=== PATIENT | male | born 1950 | race Caucasian/White ===

== ENCOUNTER 2017-08-05 05:22 | Emergency (ER) | payer MEDICARE, BC ==
[2017-08-05] MEDS ORDERED: Acetaminophen/oxyCODONE 325-5 MG Tab PO ONE (06:09)
--- NOTE | 2017-08-05 06:21 | EDM.PDOC ---
ED HPI GENERAL MEDICAL PROBLEM - General Chief Complaint: Upper Extremity Injury/Pain Stated Complaint: RT THUMB SMASH Time Seen by Provider: 08/05/17 06:10 Source of Information: Reports: Patient History Limitations: Reports: No Limitations - History of Present Illness INITIAL COMMENTS - FREE TEXT/NARRATIVE: Smashed his R thumb yesterday afternoon. Pain, throbbing kept him awake. Here now for tx. 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: Other (see below) (none) R thumb Pain Score (Numeric/FACES): 5 - Related Data Allergies Allergy/AdvReac Type Severity Reaction Status Date / Time No Known Allergies Allergy Verified 08/05/17 05:43 Home Meds: Home Meds Aspirin [Ecotrin] 325 mg PO DAILY #30 tablet.dr 08/03/14 [Rx] Lisinopril [Prinivil] 40 mg PO DAILY #90 tablet 08/03/14 [Rx] Omeprazole 20 mg PO BEDTIME #30 cap.sr 08/03/14 [Rx] Carbidopa/Levodopa [Carbidopa-Levodopa 25-100 Tab] 2 tab TID 08/05/17 [History] ClonazePAM [KlonoPIN] 0.5 mg PO BID 08/05/17 [History] Furosemide [Furosemide] 20 mg DAILY 08/05/17 [History] LORazepam [Ativan] 0.5 mg PO TID PRN 08/05/17 [History] Naproxen 250 mg PO DAILY 08/05/17 [History] Pyridostigmine [Mestinon] 60 mg BID 08/05/17 [History] predniSONE [Prednisone] 10 mg DAILY 08/05/17 [History] Past Medical History HEENT History: Reports: Other (See Below) Other HEENT History: myasthenia gravis Cardiovascular History: Reports: Hypertension Gastrointestinal History: Reports: GERD Neurological History: Reports: Parkinson's Psychiatric History: Reports: Anxiety Endocrine/Metabolic History: Reports: Obesity/BMI 30+ Oncologic (Cancer) History: Reports: Basal Cell Carcinoma - Infectious Disease History Infectious Disease History: Reports: Measles - Past Surgical History HEENT Surgical History: Reports: None Social & Family History - Family History Family Medical History: Noncontributory - Tobacco Use Smoking Status *Q: Current Every Day Smoker Years of Tobacco use: 50 Used Tobacco, but Quit: Yes Month Tobacco Last Used: 40 years ago Second Hand Smoke Exposure: No - Alcohol Use Days Per Week of Alcohol Use: 7 Number of Drinks Per Day: 6 Total Drinks Per Week: 42 - Recreational Drug Use Recreational Drug Use: No - Living Situation & Occupation Living situation: Reports: , with Spouse Occupation: Employed Review of Systems - Review of Systems Review Of Systems: See Below Constitutional: Reports: No Symptoms Musculoskeletal: Reports: Other (Distal R thumb pain) Skin: Reports: No Symptoms Neurological: Reports: No Symptoms ED EXAM, GENERAL - Physical Exam Exam: See Below Exam Limited By: No Limitations General Appearance: Alert, WD/WN, No Apparent Distress Ears: Normal External Exam, Normal Canal, Hearing Grossly Normal, Normal TMs Extremities: Other (subungual hematoma present R thumbnail.) Neurological: Alert, Oriented, CN II-XII Intact, Normal Cognition, No Motor/ Sensory Deficits Psychiatric: Normal Affect, Normal Mood Skin Exam: Warm, Dry, Intact, Normal Color, No Rash ED TRAUMA EXTREMITY PROCEDURES - Additional/Other Procedure(s) Other (Free Text) Procedure(s): Subungual hematoma reduced with electrocautery. Course - Vital Signs Last Recorded V/S: Last Vital Signs Temp 36.5 C 08/05/17 05:27 Pulse 64 08/05/17 05:27 Resp 18 08/05/17 05:27 BP 129/75 08/05/17 05:27 Pulse Ox 99 08/05/17 05:27 - Orders/Labs/Meds Orders: Active Orders 24 hr Category Date Time Status Fingers Thumb Rt F5 [CR] Stat Exams 08/05/17 05:49 Ordered Meds: Medications Discontinued Medications Generic Name Dose Route Start Last Admin Trade Name Freq PRN Reason Stop Dose Admin Oxycodone/Acetaminophen 1 tab 08/05/17 06:09 08/05/17 06:22 Percocet 325-5 Mg PO 08/05/17 06:10 1 tab ONETIME ONE Administration - Radiology Interpretation Free Text/Narrative:: R thumb [id number] Departure - Departure Time of Disposition: 06:40 Disposition: Home, Self-Care 01 Condition: Good Clinical Impression: Subungual hematoma of fingernail Qualifiers: Encounter type: initial encounter Qualified Code(s): S60.10XA - Contusion of unspecified finger with damage to nail, initial encounter - Discharge Information Referrals: Anthony Campuzano MD [Primary Care Provider] - Forms: ED Department Discharge - My Orders Last 24 Hours: My Active Orders 08/05/17 05:49 Fingers Thumb Rt F5 [CR] Stat - Assessment/Plan Last 24 Hours: My Active Orders 08/05/17 05:49 Fingers Thumb Rt F5 [CR] Stat
[2017-08-05 07:04] VITALS: BP 125/75
--- NOTE | 2017-08-05 10:55 | CR ---
INDICATION: Crushed thumb on combine. RIGHT THUMB: Three views of the right thumb were obtained and revealed no evidence of an acute fracture, dislocation, or other acute bone or joint abnormality. Osteoarthritic changes are noted at the first metacarpal-carpal, first metacarpophalangeal, and interphalangeal joint of the thumb. IMPRESSION: 1. No acute fracture or dislocation. 2. Osteoarthritis, mild to moderate in severity. MTDD
== END 2017-08-05 07:02 | disposition home or self-care (01) ==
LOC: FB.ED 05:22
DX: S60.111A Contusion of right thumb with damage to nail, initial encounter (principal); E66.9 Obesity, unspecified; I10 Essential (primary) hypertension; F41.9 Anxiety disorder, unspecified; F17.210 Nicotine dependence, cigarettes, uncomplicated; X58.XXXA Exposure to other specified factors, initial encounter; Z79.82 Long term (current) use of aspirin
CPT/HCPCS: 11740; 73140; 99283; A9270; 10160

== ENCOUNTER 2018-03-17 17:17 | Emergency (ER) | payer MEDICARE, BC ==
[2018-03-17] MEDS ORDERED: Sodium Chloride 0.9% 1,000 ML IV ONE (17:56)
[2018-03-17] MEDS ORDERED: Ondansetron 4 MG/2 ML SDV IVPUSH ONE (17:56)
--- NOTE | 2018-03-17 18:03 | EDM.PDOC ---
ED HPI GENERAL MEDICAL PROBLEM - General Chief Complaint: Abdominal Pain Stated Complaint: JAUNDICE Time Seen by Provider: 03/17/18 17:58 Source of Information: Reports: Patient, Family History Limitations: Reports: No Limitations - History of Present Illness INITIAL COMMENTS - FREE TEXT/NARRATIVE: Developed right sided abdominal pain and nausea last night. Abdominal pain resolved, still slightly nauseous. Family noticed patient was jaundiced today. No prior h/o liver or biliary issues. Has not been taking acetaminophen. No prior abdominal surgeries. Consumes 2-4 beers/day. Location: Reports: Abdomen Severity: Moderate Right Lower Abdomen Pain Score (Numeric/FACES): 2 - Related Data Allergies Allergy/AdvReac Type Severity Reaction Status Date / Time shrimp Allergy Swelling Verified 03/17/18 17:32 Home Meds: Home Meds Aspirin [Ecotrin] 325 mg PO DAILY #30 tablet.dr 08/03/14 [Rx] Lisinopril [Prinivil] 40 mg PO DAILY #90 tablet 08/03/14 [Rx] Omeprazole 20 mg PO BEDTIME #30 cap.sr 08/03/14 [Rx] Carbidopa/Levodopa [Carbidopa-Levodopa 25-100 Tab] 2 tab PO TID 08/05/17 [ History] ClonazePAM [KlonoPIN] 0.5 mg PO BID 08/05/17 [History] Furosemide 20 mg PO DAILY 08/05/17 [History] Naproxen 250 mg PO DAILY 08/05/17 [History] Pyridostigmine [Mestinon] 60 mg PO DAILY 08/05/17 [History] DULoxetine [Cymbalta] 30 mg PO DAILY 03/17/18 [History] Pyridostigmine [Mestinon] 60 mg PO BEDTIME PRN MDD vision 03/17/18 [History] Pyridostigmine [Mestinon] 90 - 120 mg PO 14 03/17/18 [History] predniSONE [Prednisone] 5 mg PO DAILY 03/17/18 [History] Past Medical History HEENT History: Reports: Other (See Below) Other HEENT History: myasthenia gravis Cardiovascular History: Reports: Hypertension Gastrointestinal History: Reports: GERD Neurological History: Reports: Parkinson's Psychiatric History: Reports: Anxiety Endocrine/Metabolic History: Reports: Obesity/BMI 30+ Oncologic (Cancer) History: Reports: Basal Cell Carcinoma - Infectious Disease History Infectious Disease History: Reports: Measles - Past Surgical History HEENT Surgical History: Reports: None GI Surgical History: Reports: None Social & Family History - Family History Family Medical History: Noncontributory - Tobacco Use Smoking Status *Q: Current Some Day Smoker Tobacco Use Within Last Twelve Months: Cigarettes - Caffeine Use Caffeine Use: Reports: Coffee - Alcohol Use Alcohol Use Frequency: Daily (2-4 beers/day) - Living Situation & Occupation Living situation: Reports: , with Spouse Occupation: Employed ED ROS GENERAL - Review of Systems Review Of Systems: See Below Constitutional: Reports: No Symptoms HEENT: Reports: No Symptoms Respiratory: Reports: No Symptoms Cardiovascular: Reports: No Symptoms Endocrine: Reports: No Symptoms GI/Abdominal: Reports: Abdominal Pain, Nausea : Reports: No Symptoms Musculoskeletal: Reports: No Symptoms Skin: Reports: Jaundice Neurological: Reports: No Symptoms Psychiatric: Reports: No Symptoms Hematologic/Lymphatic: Reports: No Symptoms Immunologic: Reports: No Symptoms ED EXAM, GI/ABD - Physical Exam Exam: See Below Exam Limited By: No Limitations General Appearance: Alert, WD/WN, No Apparent Distress, Other (icteric sclera bilaterally) Eyes: Bilateral: EOMI Nose: Normal Inspection Throat/Mouth: No Airway Compromise Head: Atraumatic, Normocephalic Neck: Normal Inspection, Supple, Full Range of Motion Respiratory/Chest: No Respiratory Distress, Lungs Clear, Normal Breath Sounds Cardiovascular: No Murmur, Extra Beats GI/Abdominal Exam: Normal Bowel Sounds, Soft, No Distention, Tender (mild RUQ). No: Distended Rectal (Males) Exam: Normal Exam Extremities: Normal Inspection Neurological: Alert, Oriented, Normal Gait, No Motor/Sensory Deficits Psychiatric: Normal Affect, Normal Mood Skin Exam: Warm, Dry, No Rash, Jaundice Course - Vital Signs Last Recorded V/S: Last Vital Signs Temp 36.8 C 03/17/18 17:17 Pulse 69 03/17/18 17:17 Resp 18 03/17/18 17:17 BP 156/83 H 03/17/18 17:17 Pulse Ox 95 03/17/18 17:17 - Orders/Labs/Meds Orders: Active Orders 24 hr Category Date Time Status EKG Documentation Completion [RC] ASDIRECTED Care 03/17/18 17:55 Active Abdomen Pelvis w Cont [CT] Stat Exams 03/17/18 18:48 Ordered UA W/MICROSCOPIC [URIN] Stat Lab 03/17/18 18:35 Received Sodium Chloride 0.9% [Normal Saline] 1,000 ml Med 03/17/18 17:56 Active IV .BOLUS EKG 12 Lead [EK] Stat Ther 03/17/18 17:54 Ordered Medication Orders Sodium Chloride (Normal Saline) 1,000 mls @ 999 mls/hr IV .BOLUS ONE Stop: 03/17/18 18:56 Last Admin: 03/17/18 18:16 Dose: 999 mls/hr Labs: Laboratory Tests 03/17/18 03/17/18 03/17/18 Range/Units 18:00 18:00 18:00 WBC 6.0 (4.5-12.0) X10-3/uL RBC 4.35 (4.30-5.75) x10(6)uL Hgb 15.2 (11.5-15.5) g/dL Hct 44.0 (30.0-51.3) % MCV 101.0 H (80-96) fL MCH 34.9 H (27.7-33.6) pg MCHC 34.5 (32.2-35.4) g/dL RDW 15.8 H (11.5-15.5) % Plt Count 200 (125-369) X10(3)uL MPV 8.9 (7.4-10.4) fL Neut % (Auto) 71.1 (46-82) % Lymph % (Auto) 16.2 (13-37) % [place] % (Auto) 8.6 (4-12) % Eos % (Auto) 1 (1.0-5.0) % Baso % (Auto) 3 H (0-2) % Neut # (Auto) 4.2 (1.6-8.3) # Lymph # (Auto) 1.0 (0.6-5.0) # [place] # (Auto) 0.5 (0.0-1.3) # Eos # (Auto) 0.1 (0.0-0.8) # Baso # (Auto) 0.2 (0.0-0.2) # PT 10.4 (8.7-11.1) INR 1.07 (0.89-1.13) Sodium 137 (135-145) mmol/L Potassium 3.6 (3.5-5.3) mmol/L Chloride 99 L (100-110) mmol/L Carbon Dioxide 32 (21-32) mmol/L BUN 16 (7-18) mg/dL Creatinine 0.8 (0.70-1.30) mg/dL Est Cr Clr Drug Dosing 101.26 mL/min Estimated GFR (MDRD) > 60 (>60) BUN/Creatinine Ratio 20.0 (9-20) Glucose 108 (80-116) mg/dL Calcium 8.8 (8.6-10.2) mg/dL Magnesium (1.8-2.5) mg/dL Total Bilirubin 12.6 H* (0.1-1.3) mg/dL AST 224 H* (5-25) IU/L ALT 149 H (12-36) U/L Alkaline Phosphatase 313 H (56-112) IU/L Total Protein 7.2 (6.0-8.0) g/dL Albumin 3.5 (3.2-4.6) g/dL Globulin 3.7 g/dL Albumin/Globulin Ratio 1.0 Amylase 53 (25-115) U/L 03/17/18 Range/Units 18:00 WBC (4.5-12.0) X10-3/uL RBC (4.30-5.75) x10(6)uL Hgb (11.5-15.5) g/dL Hct (30.0-51.3) % MCV (80-96) fL MCH (27.7-33.6) pg MCHC (32.2-35.4) g/dL RDW (11.5-15.5) % Plt Count (125-369) X10(3)uL MPV (7.4-10.4) fL Neut % (Auto) (46-82) % Lymph % (Auto) (13-37) % [place] % (Auto) (4-12) % Eos % (Auto) (1.0-5.0) % Baso % (Auto) (0-2) % Neut # (Auto) (1.6-8.3) # Lymph # (Auto) (0.6-5.0) # [place] # (Auto) (0.0-1.3) # Eos # (Auto) (0.0-0.8) # Baso # (Auto) (0.0-0.2) # PT (8.7-11.1) INR (0.89-1.13) Sodium (135-145) mmol/L Potassium (3.5-5.3) mmol/L Chloride (100-110) mmol/L Carbon Dioxide (21-32) mmol/L BUN (7-18) mg/dL Creatinine (0.70-1.30) mg/dL Est Cr Clr Drug Dosing mL/min Estimated GFR (MDRD) (>60) BUN/Creatinine Ratio (9-20) Glucose (80-116) mg/dL Calcium (8.6-10.2) mg/dL Magnesium 2.0 (1.8-2.5) mg/dL Total Bilirubin (0.1-1.3) mg/dL AST (5-25) IU/L ALT (12-36) U/L Alkaline Phosphatase (56-112) IU/L Total Protein (6.0-8.0) g/dL Albumin (3.2-4.6) g/dL Globulin g/dL Albumin/Globulin Ratio Amylase (25-115) U/L Meds: Medications Generic Name Dose Route Start Last Admin Trade Name Freq PRN Reason Stop Dose Admin Sodium Chloride 1,000 mls @ 999 mls/hr 03/17/18 17:56 03/17/18 18:16 Normal Saline IV 03/17/18 18:56 999 mls/hr .BOLUS ONE Administration Discontinued Medications Generic Name Dose Route Start Last Admin Trade Name Freq PRN Reason Stop Dose Admin Ondansetron HCl 4 mg 03/17/18 17:56 03/17/18 18:15 Zofran IVPUSH 03/17/18 17:57 4 mg ONETIME ONE Administration - Re-Assessments/Exams Free Text/Narrative Re-Assessment/Exam: 03/17/18 19:00 Patient care transferred to Dr. Hunt @[address] Abd/Pelvis Departure - Departure Time of Disposition: 19:00 (Care transferred to Dr. Hunt) Disposition: Still A Patient 30 Clinical Impression: Jaundice, Abdominal pain - Discharge Information Referrals: Maliha Banks NP [Primary Care Provider] - Forms: ED Department Discharge - My Orders Last 24 Hours: My Active Orders 03/17/18 17:54 EKG 12 Lead [EK] Stat 03/17/18 17:55 EKG Documentation Completion [RC] ASDIRECTED 03/17/18 17:56 Sodium Chloride 0.9% [Normal Saline] 1,000 ml IV .BOLUS 03/17/18 18:35 UA W/MICROSCOPIC [URIN] Stat 03/17/18 18:48 Abdomen Pelvis w Cont [CT] Stat - Assessment/Plan Last 24 Hours: My Active Orders 03/17/18 17:54 EKG 12 Lead [EK] Stat 03/17/18 17:55 EKG Documentation Completion [RC] ASDIRECTED 03/17/18 17:56 Sodium Chloride 0.9% [Normal Saline] 1,000 ml IV .BOLUS 03/17/18 18:35 UA W/MICROSCOPIC [URIN] Stat 03/17/18 18:48 Abdomen Pelvis w Cont [CT] Stat
[2018-03-17] MEDS ORDERED: Iopamidol 755 MG/ML 150 ML Bottle IV ONE (19:23)
[2018-03-17 21:16] VITALS: BP 145/86
--- NOTE | 2018-03-18 11:41 | ER ---
DATE SEEN: 03/17/2018 TIME SEEN: 2015 hours. REASON FOR VISIT: Abdominal pain. HISTORY OF PRESENT ILLNESS: This is a 67-year-old male, who came in with abdominal pain and saw my colleague earlier. Please see his note for the complete history. I was asked to see him after the CT scan, which showed an enlarged gallbladder and common bile duct without obvious evidence of obstruction. FINAL IMPRESSION: Obstructive jaundice. PLAN: I called [facility], and we will transfer the patient to Dr. Matt, the hospitalist, for an MRCP and possibly ERCP. The patient will go by private means. /[id number] KATHY/XIN
--- NOTE | 2018-03-21 07:47 | CT ---
INDICATION: Abdominal pain, upper abdomen - jaundiced. CT ABDOMEN AND CT PELVIS WITH CONTRAST: Spiral 2.5 mm axial sections were obtained through the abdomen and pelvis with 114 mL Isovue 370 at 3 mL/second, with sagittal and coronal reconstructions, 03/17/2018 - no comparisons were available. Total exam DLP = 1,084.30 mGy-cm. Pleural parenchymal change at the right lung base - right lower lobe may be fibrotic in nature, but minimal pneumonia and localized pleuritis cannot be entirely excluded. The possibility of neoplasia would be a consideration also, such as mesothelioma, with the subpleural mass appearance present seen on axial image #14. There is also some calcification in that area. This raises question of a process such as asbestosis, which further raises question of mesothelioma. The heart appears moderately prominent in size and may be slightly enlarged or at the upper limits of normal in size. No pericardial effusion was seen, however. There is mild biliary tree dilatation and dilatation of the common bile duct, which measures up to approximately 11 mm. The gallbladder also appears to be distended, measuring 12.5 cm. No definite calculi are noted within the gallbladder, however. A definite mass is not identified in the area of the head of the pancreas. No definite calculus is seen in the common bile duct distally; however, a degree of obstruction at the distal common bile duct is certainly a consideration with the dilatation present. The pancreas, however, did appear grossly normal. No pancreatic duct dilatation was seen. No focal liver lesions were identified. The adrenal glands appeared normal, as did the kidneys, except for a tiny probable cyst at the medial posterior cortex of the mid pole of the left kidney. The spleen had a normal appearance. Calcifications are noted in the splenic artery and in the aorta, as well as the proximal renal arteries, superior mesenteric artery, iliac and femoral arteries. No definite retroperitoneal mass was seen. What appears to be the appendix, visualized on coronal image #40 through #42, appeared normal. Also visualized on axial images #102 through #105. No evidence of bowel obstruction or free air was seen. Thickening of the urinary bladder wall is noted, which may be on the basis of trabeculation or possibly cystitis and should be correlated clinically. The prostate was not grossly enlarged but did measure 22 x 45 x 40 mm in AP, transverse, and craniocaudad diameters. It does not impinge on the floor of the bladder. IMPRESSION: 1. Findings suggest the possibility of obstruction at the level of the distal common bile duct with dilatation of the common bile duct to 11 mm and a dilated appearing gallbladder, likely secondary to that probable obstructive site. Intrahepatic ductal dilatation is relatively mild. Liver density appeared to be normal. No nodules are seen on the surface of the liver to strongly suggest cirrhosis. 2. ASD. 3. Degenerative changes and disk disease L2-3, L3-4, and L1-2 as well. There are some hypertrophic changes off the vertebral bodies anteriorly at those levels. They are of moderate degree. Degenerative changes are also noted at sacroiliac joints, right greater than left. 4. Thickening of the urinary bladder wall, which could be on the basis of cystitis and should be correlated clinically. Trabeculation could also be present. 5. Prostate mildly prominent to slightly enlarged. 6. MRCP for evaluation of the head of the pancreas and common bile duct may be helpful. 7. Degenerative changes and disk disease lumbar spine. Report was called to Dr. Hunt at 2004 hours on 03/17/2018. [facility]
== END 2018-03-17 21:23 ==
LOC: FB.ED 17:17
DX: K83.1 Obstruction of bile duct (principal); E66.9 Obesity, unspecified; F17.210 Nicotine dependence, cigarettes, uncomplicated; Z91.018 Allergy to other foods; Z79.82 Long term (current) use of aspirin; Z79.899 Other long term (current) drug therapy
CPT/HCPCS: 36415; 74177; 80053; 81001; 82150; 83735; 85025; 85610; 93005; 96361; 96374; 99285; J2405; J7040; Q9967

== ENCOUNTER 2019-04-26 08:33 | Day surgery (SDC) | payer MEDICARE, BC ==
[~2019-04-26 08:33] MED LIST: Sodium Chloride 0.9% 10 ML Syringe FLUSH PRN
[2019-04-26] MEDS ORDERED: Ondansetron 4 MG/2 ML SDV IVPUSH ONE (08:34)
[2019-04-26] MEDS ORDERED: Succinylcholine 200 MG/10 ML MDV IV ONE (08:34)
[2019-04-26] MEDS ORDERED: Lidocaine 2% 100 MG/5 ML Syringe IVPUSH ONE (08:34)
[2019-04-26] MEDS ORDERED: Glycopyrrolate 0.2 MG/ML 5 ML MDV IV ONE (08:34)
[2019-04-26] MEDS ORDERED: fentaNYL 100 MCG/2 ML SDV IV ONE (08:34)
[2019-04-26] MEDS ORDERED: Dexamethasone 4 MG/ML 5 ML MDV IVPUSH ONE (08:34)
[2019-04-26] MEDS ORDERED: Midazolam 1 MG/ML 2 ML SDV IV ONE (08:34)
[2019-04-26] MEDS ORDERED: Lactated Ringers 1,000 ML IV ONE (08:34)
[2019-04-26] MEDS ORDERED: Acetaminophen 1,000 MG/100 ML Infusion Bottle IV ONE (08:34)
[2019-04-26] MEDS ORDERED: Propofol 200 MG/20 ML SDV IV ONE (08:34)
[2019-04-26] MEDS ORDERED: Rocuronium 50 MG/5 ML Vial IV ONE (08:34)
[2019-04-26] MEDS ORDERED: Phenylephrine 1% 10 MG/ML SDV IV ONE (08:34)
[2019-04-26] MEDS: Lactated Ringers 1,000 ML IV SCH (08:57)
[2019-04-26] MEDS: ceFAZolin 2 GM in Premix Bag 1 BAG IV ONE (09:18)
[2019-04-26] MEDS: Lidocaine 1% with EPINEPHrine 1:100,000 20 ML MDV ONE (09:48)
[2019-04-26] MEDS: Bupivacaine 0.5% 30 ML SDV ONE (09:48)
--- NOTE | 2019-04-26 10:47 | PCM.OPNOTE ---
- General Post-Op/Procedure Note Date of Surgery/Procedure: 04/26/19 Operative Procedure(s): rih repair with mesh Findings: direct hernia Pre Op Diagnosis: right inguinal hernia without obstruction or gangrene Post-Op Diagnosis: Same Anesthesia Technique: General ET Tube, Local (8 ml 1 % lido with epi/0.5% buvipicaine) Primary Surgeon: Kolby Prajapati Anesthesia Provider: Cathy Patel ([facility] CRNAS) Pathology: none Complications: None Condition: Good Free Text/Narrative:: see dictation
[2019-04-26] MEDS ORDERED: Acetaminophen/HYDROcodone 325-5 MG Tab PO PRN (10:49)
[2019-04-26 13:03] VITALS: BP 143/82
--- NOTE | 2019-04-26 16:31 | OR ---
DATE OF OPERATION: 04/26/2019 SURGEON: Kolby Prajapati MD PROCEDURE PERFORMED: Mesh repair of a right inguinal hernia. PREOPERATIVE DIAGNOSIS: Right inguinal hernia without obstruction or gangrene . POSTOPERATIVE DIAGNOSIS: Right inguinal hernia without obstruction or gangrene direct. INDICATIONS FOR PROCEDURE: This is a 68-year-old white male with a symptomatic right inguinal hernia. He was offered and accepted repair. INTRAOPERATIVE FINDINGS: The patient had a direct hernia. This was repaired with an extra-large Phasix plug and patch, reference #[id number], lot number [id number] with an expiration date of 06/28/2020. ANESTHESIA: A total of 8 mL of 1:1 mixture of 1% lidocaine with epinephrine 0.5% bupivacaine was also used for local. DESCRIPTION OF OPERATION: After an excellent general anesthetic was administered, the patient was prepped and draped in the usual sterile manner. Our local mixture was used to infiltrate the planned incision site, which basically was a line that intercepted the inguinal ligament approximately detention between the anterior-superior iliac spine and the symphysis pubis. A skin wheal was raised 1 cm medial to the anterior-superior iliac spine and a deep intermuscular injection was also carried out to infiltrate the ilioinguinal and genitofemoral nerves. Our incision was then made, underlying subcu fat was divided using electrocautery. Superficial inferior epigastric vessels were clamped, divided, and tied with 2-0 Vicryl ties. The aponeurosis of the external oblique was carried out. More local was injected underneath the aponeurosis. A adam was made in the aponeurosis, carried out through the external ring. The cord was mobilized and controlled with a 1-inch Sydney drain. This cord was skeletonized. There was no evidence of any indirect hernia. There was a large direct hernia which was reduced. The extra-large plug was then placed into the floor of the inguinal canal, tacked into position with interrupted 2-0 Vicryl. The overlay mesh then had a keyhole placed, was cut to size, placed on the floor of the inguinal canal and tacked into position with Optifast, and then a running 2-0 Vicryl along the ilioinguinal nerve. The keyhole was then also closed with a running 2-0 Vicryl. Area was irrigated. The mesh did appear to abut against what appeared to be the ilioinguinal nerve. This was clamped and divided to prevent neuroma formation and transected. The aponeurosis was closed with a running 3-0 Vicryl. 3-0 Vicryl approximated the Linette's fascia as well as the skin. Needle, sponge, and instrument counts were reported as correct. The patient was taken to recovery in good condition. /[id number] /XIN KAHN
== END 2019-04-26 12:43 | disposition home or self-care (01) ==
LOC: FB.SDS 08:33
PROVIDERS: ATTEND Surgery
DX: K40.90 Unilateral inguinal hernia, without obstruction or gangrene, not specified as recurrent (principal); I10 Essential (primary) hypertension; E78.2 Mixed hyperlipidemia; F41.9 Anxiety disorder, unspecified; F32.9 Major depressive disorder, single episode, unspecified; F41.0 Panic disorder [episodic paroxysmal anxiety]; F10.21 Alcohol dependence, in remission; K21.9 Gastro-esophageal reflux disease without esophagitis; G20 Parkinson's disease; M17.12 Unilateral primary osteoarthritis, left knee; E66.9 Obesity, unspecified; Z68.28 Body mass index [BMI] 28.0-28.9, adult; Z88.5 Allergy status to narcotic agent; Z91.013 Allergy to seafood; Z87.891 Personal history of nicotine dependence; Z79.899 Other long term (current) drug therapy
CPT/HCPCS: 00832-QZ; A9270-GY; C1713; C1781; J0131; J0330; J0690; J1100; J2001; J2250; J2370; J2405; J2704; J3010; J3490; J7120

== ENCOUNTER 2024-02-01 09:11 | Emergency (ER) | payer OTHER, MEDICARE, BC ==
[2024-02-01] MEDS ORDERED: Ketorolac 30 MG/ML SDV IVPUSH ONE (09:32)
[2024-02-01] MEDS ORDERED: LORazepam 2 MG/ML SDV IVPUSH STA (09:32)
[2024-02-01 09:33] VITALS: BP 105/58; PULSE 80
[2024-02-01] MEDS: Sodium Chloride 0.9% 1,000 ML IV SCH (09:37)
[2024-02-01] MEDS: Ondansetron 4 MG/2 ML SDV IVPUSH ONE (09:38)
[2024-02-01] MEDS: Prochlorperazine 10 MG/2 ML SDV IVPUSH ONE (09:59)
[2024-02-01] MEDS ORDERED: Sodium Chloride 0.9% 1,000 ML IV SCH (10:00)
[2024-02-01 10:03] LABS: HEMATOCRIT 43.1 % (38.3-50.1); HEMOGLOBIN 14.5 g/dL (12.9-17.7); MEAN CORPUSCULAR HEMOGLOBIN 35.5 pg (27.0-33.3); MEAN CORPUSCULAR HGB CONC 33.6 g/dL (28.7-35.3); MEAN CORPUSCULAR VOLUME 105.5 fL (80.8-98.7); MEAN PLATELET VOLUME 8.7 fL (6.7-11.0); PLATELET COUNT,PLT 313 x10(3)uL (117-477); RED BLOOD CELL COUNT 4.09 x10(6)uL (3.90-5.90); RED CELL DISTRIBUTION WIDTH 16.6 % (12.4-15.0); WHITE BLOOD CELL COUNT,WBC 20.1 x10-3/uL (3.2-10.1)
[2024-02-01 10:10] LABS: A/G RATIO 0.9; ALANINE AMINOTRANSFERASE,ALT 17 U/L (12-36); ALBUMIN 3.8 g/dL (3.2-4.6); ALKALINE PHOSPHATASE 71 IU/L (56-112); ASPARTATE AMNIOTRANSFERASE,AST 39 IU/L (5-25); BILIRUBIN TOTAL 1.7 mg/dL (0.1-1.3); BLOOD UREA NITROGEN,BUN 49 mg/dL (7-18); CALCIUM 9.1 mg/dL (8.6-10.2); CARBON DIOXIDE,CO2 29 mmol/L (21-32); CHLORIDE,CL 90 mmol/L (100-110); CREATININE 1.2 mg/dL (0.70-1.30); ESTIMATED GFR 64 mL/min (>60); GLUCOSE RANDOM 134 mg/dL (80-116); PROTEIN TOTAL,TP 8.1 g/dL (6.0-8.0); SODIUM,NA 128 mmol/L (135-145)
[2024-02-01 10:11] LABS: TROPONIN I 5.9 pg/mL (4.0-60.3); TSH ULTRASENSITIVE 0.65 IU/mL (0.36-3.74)
[2024-02-01 10:12] LABS: BUN/CREATININE RATIO 40.8 (9-20)
[2024-02-01 10:43] LABS: ANISOCYTOSIS FEW; BAND PERCENT MAN 5 % (0-6); EOSINOPHILS PERCENT MAN 1 % (0-5); LYMPHOCYTES PERCENT MAN 4 % (13-37); MONOCYTES PERCENT MAN 1 % (4-12); SEG NEUTROPHILS PERCENT MAN 89 % (46-82)
[2024-02-01] MEDS: Piperacillin/Tazobactam 3.375 GM in Sodium Chloride 0.9% 50 ML IV STA (11:09)
[2024-02-01 11:36] LABS: LACTIC ACID 1.3 mmol/L (0.4-2.0)
[2024-02-01 11:56] LABS: BILIRUBIN,URINE SMALL (NEGATIVE); GLUCOSE,URINE NORMAL (NORMAL); KETONES,URINE 15 mg/dL (NEGATIVE); LEUKOCYTE ESTERASE,URINE SMALL (NEGATIVE); NITRITE,URINE NEGATIVE (NEGATIVE); OCCULT BLOOD,URINE NEGATIVE (NEGATIVE); PROTEIN,URINE TRACE mg/dL (NEGATIVE); UROBILINOGEN,URINE 4 mg/dL (NEGATIVE)
[2024-02-01 12:02] LABS: APPEARANCE,URINE CLEAR (CLEAR); BACTERIA,URINE RARE (NS); COLOR,URINE YELLOW (YELLOW); HYALINE CASTS,URINE FEW (NS); RBC,URINE NOT SEEN (0-5); SQUAMOUS EPITHELIAL CELLS,UR NOT SEEN (NS,R,O); WBC,URINE NOT SEEN (0-5)
[2024-02-01 12:22] LABS: AMPHETAMINES SCREEN, URINE NEGATIVE (NEGATIVE); BARBITURATE SCREEN,URINE NEGATIVE (NEGATIVE); BENZODIAZEPINES SCREEN,URINE NEGATIVE (NEGATIVE); METHADONE SCREEN, URINE NEGATIVE (NEGATIVE); METHAMPHETAMINE SCREEN, URINE NEGATIVE (NEGATIVE); OXYCODONE SCREEN,URINE NEGATIVE (NEGATIVE); THC SCREEN,URINE NEGATIVE (NEGATIVE)
[2024-02-01 12:24] LABS: BUPRENORPHINE SCREEN,URINE NEGATIVE (NEGATIVE)
[2024-02-01] MEDS: Diatrizoate Meglumine/Diatrizoate Sodium 37% 30 ML Bottle PO ONE (13:00)
[2024-02-01 13:36] LABS: INFLUENZA A NAA NEGATIVE (NEGATIVE); INFLUENZA B NAA NEGATIVE (NEGATIVE); RESPIRATORY SYNCYTIAL VIR NAA NEGATIVE (NEGATIVE)
[2024-02-01 13:40] LABS: CORONAVIRUS COVID-19 NAA NEGATIVE (NEGATIVE)
[2024-02-02 22:44] LABS: THYROXINE FREE 1.3 ng/dL (0.9-1.7)
== END 2024-02-01 15:00 ==
LOC: FB.ED 09:11
DX: K56.609 Unspecified intestinal obstruction, unspecified as to partial versus complete obstruction (principal); J18.9 Pneumonia, unspecified organism; K21.9 Gastro-esophageal reflux disease without esophagitis; I10 Essential (primary) hypertension; F17.210 Nicotine dependence, cigarettes, uncomplicated; E66.9 Obesity, unspecified; Z68.25 Body mass index [BMI] 25.0-25.9, adult; Z79.82 Long term (current) use of aspirin; Z91.013 Allergy to seafood; Z88.5 Allergy status to narcotic agent; Z79.899 Other long term (current) drug therapy; Z90.49 Acquired absence of other specified parts of digestive tract
CPT/HCPCS: 0241U; 36415; 43752; 70450; 71045; 74177; 80053; 80307; 81001; 83605; 84439; 84443; 84484; 85025; 87040; 93005; 93010; 96361; 96365; 96375; 99285; 99285-25; C1758; J0780; J2405; J2543; J3490; J7030; Q9963

== ENCOUNTER 2024-04-17 07:13 | Emergency (ER) | payer OTHER ==
[2024-04-17 07:55] VITALS: BP 110/73; PULSE 64
== END 2024-04-17 09:13 | disposition home or self-care (01) ==
LOC: FB.ED 07:13
DX: S42.001A Fracture of unspecified part of right clavicle, initial encounter for closed fracture (principal); I10 Essential (primary) hypertension; K21.9 Gastro-esophageal reflux disease without esophagitis; E66.9 Obesity, unspecified; F17.210 Nicotine dependence, cigarettes, uncomplicated; Z91.013 Allergy to seafood; Z88.8 Allergy status to other drugs, medicaments and biological substances; Z79.899 Other long term (current) drug therapy; Z90.49 Acquired absence of other specified parts of digestive tract; Z68.27 Body mass index [BMI] 27.0-27.9, adult; W06.XXXA Fall from bed, initial encounter
CPT/HCPCS: 73030-RT; 99283